=== PATIENT | male | born 1995 | race Caucasian/White ===

== ENCOUNTER 2019-03-27 21:56 | Emergency (ER) | payer BC, OTHER ==
[~2019-03-27] VITALS: Ht 175.3 cm; Wt 80.3 kg
--- NOTE | 2019-03-27 22:20 | NUR ---
SHRUTHI BERRY AT THE BED SIDE
--- NOTE | 2019-03-27 22:20 | NUR ---
BIB FAMILY FOR C/O R KNEE PAIN AND EDEMA SINCE 1899. - INJURY, - TRAUMA. HAPPENED WHILE DRIVING. Addendum: 03/27/19 at 2220 by MOOK HAD KNEE SX 6 YRS AGO
[2019-03-27] MEDS ORDERED: IBUPROFEN 600 MG TABLET PO ONE ×2 (22:30→22:33)
--- NOTE | 2019-03-28 00:31 | NUR ---
Patient discharged to home in stable condition. Written and verbal after care instructions given. Patient verbalizes understanding of instruction. PT refused immobilizer at this time. per him, he already has one at home
[2019-03-28 00:34] VITALS: BP 118/73
== END 2019-03-28 00:35 | disposition home or self-care (01) ==
LOC: ER 21:58
DX: M25.561 Pain in right knee (principal)
CPT/HCPCS: 73564-TC